=== PATIENT | female | born 2000 | race Two or more races ===

== ENCOUNTER 2020-02-09 19:01 | Emergency (ER) | payer OTHER ==
[~2020-02-09] VITALS: Ht 167.6 cm; Wt 140.6 kg
[2020-02-09 19:13] VITALS: BP 153/101
[2020-02-09 20:20] LABS: Basophils # (auto) 0 10 ^3/uL (0-0.2); Eosinophils # (auto) 0 10 ^3/uL (0-0.8); Hemoglobin 9.8 g/dL (12.2-16.2); Lymphocytes # (auto) 1.9 10 ^3/uL (0.4-5.4); Mean Corpuscular Volume 65.9 fL (80.0-100.0); Monocytes # (auto) 0.7 10 ^3/uL (0-1.3)
[2020-02-09 20:22] LABS: Basophils % (auto) 0.3 % (0.0-2.0); Eosinophils % (auto) 0.2 % (0.0-7.0); Hematocrit 32.9 % (36.0-46.0); Lymphocytes % (auto) 11.3 % (10.0-50.0); Mean Corpuscular Hemoglobin 19.7 pg (28.0-32.0); Mean Corpuscular Hgb Conc. 29.9 g/dL (32.0-36.0); Neutrophils % (auto) 84.2 % (37.0-80.0); Platelet Count (auto) 538 10^3/uL (140-450); Red Cell Distribution Width 18.7 % (11.8-14.3); White Blood Cell 16.6 10^3/uL (4.4-10.8)
[2020-02-09 20:33] LABS: INR 1.03 (0.9-1.15); Partial Thromboplastin Time 26.5 sec (23.0-31.2)
[2020-02-09 20:35] LABS: Albumin 3.4 g/dL (3.4-5.0); Calcium 8.7 mg/dL (8.5-10.1)
[2020-02-09 20:38] LABS: Bilirubin, Total 0.2 mg/dL (0.2-1.0)
== END 2020-02-10 01:04 | disposition home or self-care (01) ==
LOC: ER 19:01 → EDBD 19:01 → ER 02-10 01:04
DX: S16.1XXA Strain of muscle, fascia and tendon at neck level, initial encounter (principal); S20.219A Contusion of unspecified front wall of thorax, initial encounter; S30.1XXA Contusion of abdominal wall, initial encounter; V49.9XXA Car occupant (driver) (passenger) injured in unspecified traffic accident, initial encounter; Y93.89 Activity, other specified; Y92.89 Other specified places as the place of occurrence of the external cause; Y99.8 Other external cause status
CPT/HCPCS: 36415; 71250; 72125; 74176; 80053; 85025; 85610; 85730